=== PATIENT | male | born 1990 | race Caucasian/White ===

== ENCOUNTER 2023-02-18 22:07 | Emergency (ER) | payer OTHER ==
[~2023-02-18] VITALS: Ht 190.5 cm; Wt 149.7 kg
[~2023-02-18 22:07] MED LIST: AMOX500 PO; AZIT250 PO; AZIT500 PO; ESCI20; HYDACE5 PO; PRED20 PO; PROM25 PO; PSEU120ER PO; RXNEOPOLHC RIGHTEAR
[2023-02-18 22:22] VITALS: BP 177/118
[2023-02-18] MEDS ORDERED: PRED20 PO (23:06)
== END 2023-02-18 23:17 | disposition home or self-care (01) ==
LOC: ER 22:07
DX: M10.9 Gout, unspecified (principal); Z88.8 Allergy status to other drugs, medicaments and biological substances
CPT/HCPCS: 73630; 99283-25; A9270; J7512

== ENCOUNTER 2025-02-26 08:54 | Emergency (ER) | payer OTHER ==
[~2025-02-26] VITALS: Ht 188 cm; Wt 129.3 kg
[2025-02-26 09:12] VITALS: BP 216/146
[2025-02-26] MEDS ORDERED: Ketorolac Tromethamine 30mg Vial IM ONE (09:50)
[2025-02-26] MEDS ORDERED: Norco 5-325 Ta1 EACH PO (10:43)
== END 2025-02-26 10:56 | disposition home or self-care (01) ==
LOC: ER 08:54
DX: M54.12 Radiculopathy, cervical region (principal); Z88.4 Allergy status to anesthetic agent
CPT/HCPCS: 73030; 96372; 99283-25; J1885